=== PATIENT | male | born 1950 | race Caucasian/White ===

== ENCOUNTER 2016-10-22 03:43 | Emergency (ER) | payer MEDICARE, OTHER ==
[~2016-10-22] VITALS: Ht 177.8 cm; Wt 96.8 kg
[2016-10-22 04:06] VITALS: BP 160/84; PULSE 73; RESP 14; O2SAT 94
[2016-10-22 05:15] VITALS: BP 172/103; PULSE 62; RESP 8; O2SAT 94
--- NOTE | 2016-10-22 05:31 | ED.REPORT ---
HPI-General Illness Date of Service Oct 22, 2016 ED Provider: Jeet Pelaez MD Mr. Jitendra Altamirano is a pleasant 66-year-old gentleman with past medical history significant for sleep apnea and 20+ years rheumatoid arthritis on Plaquenil and methotrexate who presents to the [facility] emergency department for 1 month history of increasing substernal xiphoid all chest pain described as burning and sharp sometimes 10 out of 10 feels better when lying flat and drinking soda water and associated with nausea and loss of voice. He states that he normally takes Prilosec on Tuesdays after methotrexate however he has been in pain so he took his Prilosec the last 3 nights with minimal relief. He expresses anxiety and the need to have an upper endoscopy performed the feels should be done sooner than later. He denies signs and symptoms of upper or lower GI bleed such as hematemesis, melena, bright red blood. He denies syncope, headache, change in vision, fever, chills, vomiting, shortness of breath, abdominal pain, constipation, diarrhea. He reports Avila in his mouth, mild dizziness, loss of appetite. Nursing Notes Stated Complaint: THROAT PROBLEM/ ACID REFLUX Chief Complaint: General Complaint Nursing Notes Reviewed: Yes Allergies: Coded Allergies: No Known Allergies (Unverified , 10/22/16) Scheduled Omeprazole (Omeprazole) 40 Mg Capsule.dr 40 MG PO DAILY Sucralfate (Carafate) 1 Gm Tablet 1 GM PO QID General Time Seen by MD: 05:00 Chief Complaint Chest pain Sudden in Onset?: No Onset Occurred: More than a week ago... (1 month) Past Medical History Past Medical History Rheumatoid arthritis Sleep apnea Reports: GERD Review of Systems A comprehensive review of systems was conducted with the patient and found to be negative except as above in the History of Present Illness. Physical Exam General: No acute distress, well-developed, well-nourished, appropriately interactive HEENT: Normocephalic, atraumatic. External ears without defect. Pupils equal, round, and reactive to light and accommodation. Anicteric sclerae, moist conjunctivae, and no lid lag. Oropharynx free of erythema and cobble stoning with moist mucosa. Neck: Supple with full range of motion. No jugular venous distension. No bruits. No lymphadenopathy or thyromegaly. Cardiovascular: Regular rate and rhythm with no murmurs, rubs, or gallops appreciated Pulmonary: Clear to auscultation bilaterally with no crackles, wheezes, or rhonchi. Normal respiratory effort with no use of accessory muscles. Abdomen: Bowel tones present. Soft, nontender, nondistended. No hepatosplenomegaly or masses appreciated. Extremities: No clubbing, cyanosis, edema, or lymphadenopathy appreciated. Skin: Normal temperature, turgor, and texture; no rash, ulcers, or subcutaneous nodules appreciated. Neurological: Cranial nerves grossly intact. Normal muscle strength, tone, and bulk. Reflexes, coordination, and sensory function within normal limits. No known gait impairment. Psychiatric: Normal mood and affect. Alert and oriented to person, place, and time. Vital Signs Vital Signs Date Time Temp Pulse Resp B/P Pulse Ox O2 Delivery O2 Flow Rate FiO2 10/22/16 06:17 36.8 68 16 161/81 94 Room Air 10/22/16 05:50 62 13 160/86 95 Room Air 10/22/16 05:15 62 8 172/103 94 Room Air 10/22/16 04:06 36.7 73 14 160/84 94 Room Air Interpretation & Diagnostics Lab Results Interpretation Test 10/22/16 05:59 Re-Eval/Medical Decision Med Decision/Clinical Course Patient is a 66-year-old anxious individual with significant rheumatoid arthritis receiving treatment for the past 20 years. His primary care physician has recommended an upper endoscopy however he will need to wait several weeks before it can be performed. He is here in efforts to get an upper endoscopy. EKG was normal. Performed a stool occult test which was negative, and a serum H. pylori test results will be relayed to his physician when received. He will be sent home with prescription for Carafate to be taken on the day of and the day after his methotrexate dose on Tuesdays, as well as an increased dose of Prilosec at 40 mg to be taken daily. Discharge & Departure Primary Impression: Non-cardiac chest pain Disposition: Home Discharge Condition All VS Reviewed: Yes Condition: Stable Additional Instructions: During you visit to [facility] Emergency Department we obtained blood work for Helicobacter Pylori, which is a bacteria that can cause stomach ulcers, and a stool test for blood to detect GI bleeding. We will send you home with -Increased Dose of Prilosec 40 mgs daily. -Carafate to take the day of and the day after your methotrexate dose on Tuesday. Do not hesitate to call emergency services or your primary care physician if you experience any of the following. -High unrelenting fevers. -Uncontrolled vomiting. -Severe hypertension. -Syncope or loss of consciousness. -Chest pain or severe shortness of breath. Follow up with your primary care physician in 1-2 weeks time following your emergency department visit for medication checks and general well-being. Referrals: Zachary Broussard MD (PCP) Attending Statement The patient was seen and examined together with Dr. Maynor Ortega and I agree with the history, exam and plan as outlined in the note above. copies to: Zachary Broussard MD, COREY P DO Oct 22, 2016 05:30 Jeet Pelaez MD Oct 22, 2016 13:16
[2016-10-22] MEDS ORDERED: OMEP40CA36 PO (05:34)
[2016-10-22] MEDS ORDERED: SUCR1TAB30 PO ×2 (05:34→05:44)
[2016-10-22 05:50] VITALS: BP 160/86; PULSE 62; RESP 13; O2SAT 95
[2016-10-22 06:17] VITALS: BP 161/81; PULSE 68; RESP 16; O2SAT 94
[2016-12-06] MEDS ORDERED: FOLI0.8C PO (15:54)
[2016-12-06] MEDS ORDERED: METH2.5T PO (15:54)
[2016-12-06] MEDS ORDERED: ASPI-973 PO (15:54)
[2016-12-06] MEDS ORDERED: HYDR200T5 PO (15:54)
[2016-12-06] MEDS ORDERED: CALCIT PO (15:54)
== END 2016-10-22 06:19 | disposition home or self-care (01) ==
LOC: SED 03:43
DX: R07.89 Other chest pain (principal); R11.0 Nausea; R49.1 Aphonia; F41.9 Anxiety disorder, unspecified; R42 Dizziness and giddiness; R63.0 Anorexia; M06.9 Rheumatoid arthritis, unspecified; K21.9 Gastro-esophageal reflux disease without esophagitis

== ENCOUNTER 2016-12-07 07:40 | Day surgery (SDC) | payer MEDICARE, OTHER ==
[~2016-12-07] VITALS: Ht 177.8 cm; Wt 93.0 kg
[~2016-12-07 07:40] MED LIST: 0.9% Sodium Chloride 1,000 ML IV SCH; ASPI-973 PO; CALCIT PO; FOLI0.8C PO; HYDR200T5 PO; METH2.5T PO; OMEP40CA36 PO; SUCR1TAB30 PO; Sodium Chloride LOK Flush 10 mL Syringe IV PRN; fentaNYL-PF 50 mCg/mL 2 mL Inj IVPUSH PRN
[2016-12-07 07:53] VITALS: BP 166/96; PULSE 77; RESP 14; O2SAT 96
[2016-12-07] MEDS ORDERED: GLUC-120 PO (07:59)
[2016-12-07] MEDS ORDERED: MULT1CAP33 PO (07:59)
[2016-12-07 09:14] VITALS: BP 145/88; PULSE 68; RESP 14; O2SAT 94
[2016-12-07 09:20] VITALS: BP 145/88; PULSE 68; RESP 14; O2SAT 94
--- NOTE | 2016-12-07 09:36 | ENDO ---
[address] [address] ENDOSCOPY PROCEDURE PATIENT: IAN GARNETT : 1950 MR#: [id number] ADMIT: 12/07/2016 JOB ID: [id number] DATE: 12/07/2016 PROCEDURE: Esophagogastroduodenoscopy. INDICATION: Gastroesophageal reflux. The patient's ASA classification is 2. Mallampati score is 2. MEDICATIONS: 1. Versed 6 mg. 2. Fentanyl 125 mcg. INSTRUMENT USED: GIF H 20 J. PROCEDURE DETAILS: After informed consent was obtained, the patient was brought into the GI suite, where he was placed on oxygen via nasal cannula and monitored with continuous pulse oximeter, telemetry and blood pressure monitoring. A time-out was performed. Then, he was placed in the left lateral decubitus position and medications were administered for sedation. A bite block was placed. The standard EGD scope was inserted through the bite block and advanced under direct visualization to the second portion of duodenum without difficulty. FINDINGS: 1. In the duodenal bulb, there was mild erythema suggestive of duodenitis. Multiple random biopsies were obtained. 2. The remainder of the examined portion of the duodenum was otherwise unremarkable. 3. Normal appearing pylorus. 4. In the antrum, there was an approximately two 5 mm areas of focal erythema that were well circumscribed. Multiple biopsies were obtained. 5. Random biopsies were obtained in the gastric body. 6. Retroflexed views in the gastric body revealed a normal-appearing cardia and fundus. 7. The mucosa in the gastric body, fundus and cardia appeared normal. 8. The GE junction was regular at 46 cm with a regular Z-line. 9. Normal appearing esophagus. IMPRESSIONS: 1. Focal gastritis. 2. Inflammation of the duodenal bulb. IMPRESSION: Duodenitis and focal gastritis in the antrum. RECOMMENDATIONS: 1. Await biopsy results. 2. Consider decreasing PPI to daily versus b.i.d. 3. Proceed to colonoscopy. COMPLICATIONS: None. ESTIMATED BLOOD LOSS: Less than 5 mL. PROCEDURE PERFORMED: Colonoscopy. INDICATIONS: Screening. Please see above for the patient's ASA classification, Mallampati score and medications. INSTRUMENT USED: PCF H 190 L. PREPARATION QUALITY: Was good. PROCEDURE DETAILS: After completion of the EGD examination, the patient was turned and then a digital rectal examination was performed which was unremarkable. The colonoscope was then inserted into the rectum and advanced under direct visualization to the cecum, which was identified by the presence of the ileocecal valve and appendiceal orifice. Once it the cecum was reached, colonoscope was withdrawn back to the rectum as the mucosa and lumen were examined. In the rectum, retroflexion was performed. Following retroflexion, remaining air in the rectum was suctioned and procedure was completed. FINDINGS: 1. Scattered diverticula were seen throughout the left side of the colon. 2. Two polyps ranging in size from 4 mm to diminutive were removed with cold biopsy forceps. 3. Retroflexed views in the rectum revealed moderate-sized internal hemorrhoids. IMPRESSION: 1. Two sigmoid polyps. 2. Left-sided diverticulosis. 3. Internal hemorrhoids. RECOMMENDATIONS: 1. Fiber rich diet. 2. Repeat colonoscopy pending polyp pathology results. 3. Follow up in GI clinic. COMPLICATIONS: None. ESTIMATED BLOOD LOSS: Less than 5 mL.
--- NOTE | 2016-12-08 11:25 | PATH ---
SURGICAL PATHOLOGY Attending Physician:Acosta Shaver CASE STATUS: Signed Out PATIENT NAME: IAN GARNETT PID: [id number] : 1950 DATE COLLECTED:12/07/2016 17:25 SPECIMEN: 1: Duodenum, Biopsy 2: Stomach, Antrum, Biopsy 3: Gastric, Biopsy 4: Colon, Biopsy CLINICAL HISTORY: 1). DUODENAL BULB BIOPSY 2). ANTRAL BIOPSY 3). GASTRIC BODY BIOPSY 4). SIGMOID POLYPS X2 FINAL DIAGNOSIS: 1.DUODENAL BULB BIOPSY: DUODENAL MUCOSA WITH NO DIAGNOSTIC ALTERATIONS. Negative for inflammation, sprue, dysplasia, and malignancy. 2.ANTRAL BIOPSY: ANTRAL MUCOSA WITH NO DIAGNOSTIC ALTERATIONS. Negative for Helicobacter organisms. Negative for intestinal metaplasia. Negative for dysplasia and malignancy. 3.GASTRIC BODY BIOPSY: BODY-TYPE MUCOSA WITH NO DIAGNOSTIC ALTERATIONS. Negative for Helicobacter organisms. Negative for intestinal metaplasia. Negative for dysplasia and malignancy. 4.SIGMOID POLYPS: TUBULAR ADENOMA, 1. HYPERPLASTIC POLYP, 1. ICD10 CODE D12.5 K63.5 GROSS DESCRIPTION: The specimen is received in four formalin filled containers labeled with the patient's name. 1). The specimen is sublabeled "duodenal bulb" and consists of 3 portions of tissue which aggregate to 0.3 x 0.3 x 0.2 CM. The specimen is entirely submitted in cassettes 1A. 2). The specimen is sublabeled "antral" and consists of 3 portions of tissue which aggregate to 0.3 x 0.3 x 0.2 CM. The specimen is entirely submitted in cassette 2A. 3). The specimen is sublabeled "gastric body" and consists of 3 portions of tissue which aggregate to 0.3 x 0.3 x 0.2 CM. The specimen is entirely submitted in cassette 3A. 4). The specimen is sublabeled "sigmoid polyp X2" and consists of 4 portions of tissue which aggregate to 0.4 x 0.4 x 0.3 CM. The specimen is entirely submitted in cassette 4A. 12/07/2016 DAC MICRO DESCRIPTION: See diagnosis. ICD-9 CODES: CPT CODES: 1: 50123 2: 91996 3: 30514 4: 76651 Electronically Signed Out Tg Aranda MD [facility] [address] [place] [address] Division, [place] [address] Technical component performed at [facility], [address], [address]
== END 2016-12-07 23:59 | disposition home or self-care (01) ==
LOC: END 07:40
PROVIDERS: ATTEND Internal Medicine Gastroenterology
DX: Z12.11 Encounter for screening for malignant neoplasm of colon (principal); D12.5 Benign neoplasm of sigmoid colon; K57.30 Diverticulosis of large intestine without perforation or abscess without bleeding; K64.8 Other hemorrhoids; K29.50 Unspecified chronic gastritis without bleeding; K29.80 Duodenitis without bleeding; K21.9 Gastro-esophageal reflux disease without esophagitis; Z79.82 Long term (current) use of aspirin; Z79.899 Other long term (current) drug therapy; Z87.891 Personal history of nicotine dependence
CPT/HCPCS: 43239; 45380; 45385; 88305; 99153; G0500; J2250; J3010; J7030